=== PATIENT | female | born 1980 | race Caucasian/White ===

== ENCOUNTER 2019-02-08 10:23 | Emergency (ER) | payer BC ==
[2019-02-08] MEDS ORDERED: LIDOCAINE 1% (MDV) 10 ML INJ INJ (10:37)
[2019-02-08] MEDS: IBUPROFEN 800 MG TAB PO (10:47)
[2019-02-08] MEDS: DIPHTH/TET/ACEL PERTUSS (ADULT) 0.5 ML VIAL IM* (10:47)
[2019-02-08] MEDS: LIDOCAINE 1% (MDV) 20 ML INJ SC (10:48)
== END 2019-02-08 12:24 | disposition home or self-care (01) ==
LOC: FTE 10:23
DX: S51.851A Open bite of right forearm, initial encounter (principal); W54.0XXA Bitten by dog, initial encounter; Y92.9 Unspecified place or not applicable; Z23 Encounter for immunization
CPT/HCPCS: 12001; 73090-RT; 90471; 90715; 99283-25